=== PATIENT | male | born 1955 | race Caucasian/White ===

== ENCOUNTER 2016-07-02 18:18 | Emergency (ER) | payer MEDICARE ==
[2016-07-02] MEDS ORDERED: Ondansetron INJ* 2 MG/ML VIAL IV ONE (19:47)
[2016-07-02] MEDS ORDERED: Ketorolac INJ* 30 MG/ML 1 ML VIAL IM ONE (19:47)
[2016-07-02] MEDS ORDERED: NS 0.9% 1000 ML* 1,000 ML IV ONE (19:47)
[2016-07-02] MEDS ORDERED: Morphine INJ* 4 MG/ML 1 ML SYRINGE IV ONE (19:47)
[2016-07-02 20:29] LABS: Hematocrit 45 % (42-52); Hemoglobin 15.2 g/dl (14.0-18.0); Mean Corpuscular HGB Conc 34 g/dl (31-36); Mean Corpuscular Hemoglobin 29 pg (27-31); Mean Corpuscular Volume 88 fL (80-94); Mean Platelet Volume 9 um3 (7.4-10.4); Red Blood Count 5.18 10^6/ul (4.0-5.4); Red Cell Distribution Width 14 % (10.5-15); White Blood Count 10.2 10^3/ul (3.5-10.8)
[2016-07-02] MEDS ORDERED: Ketorolac INJ* 30 MG/ML 1 ML VIAL IV PUSH ONE (20:35)
[2016-07-02 20:47] LABS: Albumin 4.2 g/dL (3.2-5.2); BUN/Creatinine Ratio 16.5 (8-20); Calcium 9.3 mg/dL (8.6-10.3); EGFR African American 118.7 (>60); EGFR Non-African American 92.3 (>60); Globulin 2.9 g/dL (2-4); Potassium 3.8 mmol/L (3.5-5.0); Total Bilirubin 0.4 mg/dL (0.2-1.0); Total Protein 7.1 g/dL (6.4-8.9)
[2016-07-02 20:48] LABS: Troponin I 0.01 ng/mL (<0.04)
--- NOTE | 2016-07-02 20:49 | RAD ---
Indication: Left flank pain. CT of the abdomen and pelvis was performed without oral or IV contrast administration. Coronal and sagittal reconstructed images were obtained. Lung bases demonstrate no pleural fluid, nodules or masses. Heart is of normal size without evidence of pericardial effusion. The liver is normal in size. No focal lesions or intrahepatic biliary duct dilatation is noted. The gallbladder demonstrates no gallstones, pericholecystic fluid or wall thickening. Common duct is not dilated. The pancreas demonstrates no mass or pancreatic duct dilatation. The spleen is normal in size. No adrenal masses are noted. The kidneys demonstrate no hydronephrosis in either kidney. Small renal cysts are noted. Atherosclerotic aorta is noted. No evidence of aneurysmal dilatation is noted. No dilated loops of bowel are noted. The colon is filled with stool. Diverticulosis of the sigmoid colon without definite evidence of diverticulitis is noted. No hernias are noted. IMPRESSION: NO EVIDENCE OF OBSTRUCTIVE UROPATHY IS NOTED. NO ABNORMAL MASSES OR FLUID COLLECTIONS ARE NOTED. DIVERTICULOSIS WITHOUT DEFINITE EVIDENCE OF DIVERTICULITIS.
[2016-07-02] MEDS ORDERED: oxyCODONE/Acetamin 5/325 MG* TAB PO ONE (21:16)
[2016-07-02] MEDS ORDERED: Cyclobenzaprine TAB* 10 MG PO ONE (21:17)
[2016-07-02 22:48] LABS: Urine Bilirubin Negative (Negative); Urine Glucose Negative (Negative); Urine Nitrite Negative (Negative)
[2016-07-02 23:38] VITALS: BP 134/80
== END 2016-07-02 23:36 | disposition home or self-care (01) ==
LOC: ED 18:18
DX: R10.84 Generalized abdominal pain (principal)
CPT/HCPCS: 36415; 74176; 80053; 81003; 83690; 84484; 85025; 93005; 96374; 96375; 99282; A9270-GY; J1885; J2270; J2405

== ENCOUNTER 2017-01-04 17:11 | Emergency (ER) | payer MEDICARE ==
[2017-01-04] MEDS ORDERED: Ondansetron INJ* 2 MG/ML VIAL IV ONE (18:04)
[2017-01-04] MEDS ORDERED: Morphine INJ* 4 MG/ML 1 ML SYRINGE IV ONE (18:04)
[2017-01-04] MEDS ORDERED: NS 0.9% 1000 ML* 1,000 ML IV ONE ×2 (18:04→19:16)
[2017-01-04 18:30] LABS: Hematocrit 45 % (42-52); Hemoglobin 15.4 g/dl (14.0-18.0); Mean Corpuscular HGB Conc 35 g/dl (31-36); Mean Corpuscular Hemoglobin 31 pg (27-31); Mean Corpuscular Volume 88 fL (80-94); Mean Platelet Volume 9 um3 (7.4-10.4); Red Blood Count 5.06 10^6/ul (4.0-5.4); Red Cell Distribution Width 14 % (10.5-15); White Blood Count 10.7 10^3/ul (3.5-10.8)
[2017-01-04 18:34] LABS: Urine Bacteria Absent (Absent); Urine Bilirubin Negative (Negative); Urine Glucose 1+(50 mg/dL) (Negative); Urine Nitrite Negative (Negative); Urine Sperm Present (Absent)
[2017-01-04 18:56] LABS: Albumin 4.1 g/dL (3.2-5.2); BUN/Creatinine Ratio 17.4 (8-20); C Reactive Protein 1.64 mg/L (< 5.00); Calcium 9.3 mg/dL (8.6-10.3); EGFR African American 116.7 (>60); EGFR Non-African American 90.7 (>60); Globulin 2.8 g/dL (2-4); Potassium 3.7 mmol/L (3.5-5.0); Total Bilirubin 0.3 mg/dL (0.2-1.0); Total Protein 6.9 g/dL (6.4-8.9)
[2017-01-04] MEDS ORDERED: fentaNYL* 50 MCG/ML 2 ML VIAL (100 MCG VIAL) IV SLOW PU ONE (19:24)
--- NOTE | 2017-01-04 20:18 | RAD ---
CLINICAL HISTORY: Left lower quadrant pain and flank pain COMPARISON: July 02, 2016 TECHNIQUE: Multiple contiguous axial CT scans were obtained of the abdomen and pelvis, without intravenous contrast enhancement. Coronal and sagittal multiplanar reformations are submitted for review. Oral contrast was administered. FINDINGS: The study is limited by the lack of intravenous contrast. This limits evaluation of the solid organs and vasculature. LUNG BASES: The lung bases are clear. LIVER: The liver is normal in shape, size, contour, and attenuation. BILE DUCTS: There is no intrahepatic or extrahepatic biliary dilatation. GALLBLADDER: The gallbladder is normal, without pericholecystic inflammatory change. PANCREAS: The pancreas is normal, without mass or ductal dilatation. SPLEEN: Normal in size and appearance. UPPER GI TRACT: Evaluation of the gastrointestinal tract is limited by incomplete gastric distention. The upper GI tract is unremarkable. SMALL BOWEL AND MESENTERY: The small bowel is normal in contour, course, and caliber. There is no obstruction or dilatation. COLON: There are scattered diverticula of the distal colon. There is no appreciable pericolonic inflammatory change. ADRENALS: Normal bilaterally. KIDNEYS: The kidneys are normal in shape, size, contour, and axis. There is no hydronephrosis or nephrolithiasis. BLADDER: The bladder is smooth in contour. PELVIC ORGANS: The prostate gland is normal. The seminal vesicles are symmetric. Fiducial markers are noted AORTA: There is calcific atherosclerotic disease of the abdominal aorta and its branches, without aneurysmal dilatation IVC: Unremarkable LYMPH NODES: There is no lymphadenopathy by size criteria. ABDOMINAL WALL: There is no evidence for abdominal wall hernia. BONES AND SOFT TISSUES: Degenerative changes are noted OTHER: None IMPRESSION: NO HYDRONEPHROSIS OR NEPHROLITHIASIS. DIVERTICULOSIS WITHOUT PERICOLONIC INFLAMMATORY CHANGE.
[2017-01-04] MEDS ORDERED: Ciprofloxacin TAB* 500 MG PO ONE (20:38)
[2017-01-04] MEDS ORDERED: Ciprofloxacin 400MG IVPREMIX(* 400 MG/200 ML BAG IVPB ONE (20:38)
[2017-01-04] MEDS ORDERED: metroNIDAZOLE TAB* 250 MG PO ONE (20:39)
[2017-01-04] MEDS ORDERED: metroNIDAZOLE IV 500 MG/100ML* 500 MG/100 ML BAG IVPB ONE (20:39)
--- NOTE | 2017-01-04 20:42 | ED ---
Talha Milian Alfonso, scribed for Aileen Hearn MD on 01/04/17 at 1801 . Abdominal Pain/Male - HPI Summary HPI Summary: This patient is a 61 year old M presenting to [facility] with a chief complaint of left flank pain since 2 weeks ago. The pain radiates to his groin. The patient rates the pain 10/10 in severity. Symptoms aggravated by movement. Symptoms alleviated by nothing. Patient denies N/V/D, dysuria, and bowel symptoms (uses stool softeners because he takes oxycodone). Tobacco abuse disorder. He denies PMHx of CHF. PMHx of prostate cancer, borderline DM, HTN, HLD, and CAD (2 SC and 3 stents). - History of Current Complaint Chief Complaint: EDAbdPain Stated Complaint: ABD AND LT LEG PAIN Time Seen by Provider: 01/04/17 17:43 Hx Obtained From: Patient Onset/Duration: Sudden Onset, Lasting Weeks - 2, Still Present Timing: Constant Severity Initially: Severe Severity Currently: Severe Pain Intensity: 10 Pain Scale Used: 0-10 Numeric Location: Flank - L Radiates: Yes Radiates to: Other - Groin Aggravating Factor(s): Movement Alleviating Factor(s): Nothing Associated Signs And Symptoms: Positive: Other - Patient denies N/V/D, dysuria, and bowel symptoms (uses stool softeners because he takes oxycodone). - Allergies/Home Medications Allergies/Adverse Reactions: Allergies Allergy/AdvReac Type Severity Reaction Status Date / Time Isosorbide Nitrate AdvReac Intermediate Headache Verified 01/04/17 17:24 [From Imdur] DYE FROM STRESS TEST Allergy Nausea And Uncoded 07/02/16 18:29 Vomiting PMH/Surg Hx/FS Hx/Imm Hx Endocrine/Hematology History: Reports: Hx Diabetes Cardiovascular History: Reports: Hx Hypertension Denies: Hx Congestive Heart Failure, Hx Pacemaker/ICD Respiratory History: Reports: Hx Sleep Apnea - RECENTLY DIAGNOSED-NO CPAP GI History: Reports: Hx Gastroesophageal Reflux Disease - MILD-NO MEDS Denies: Other GI Disorders History: Reports: Hx Kidney Stones - IN THE PAST Denies: Hx Dialysis, Hx Renal Disease Musculoskeletal History: Reports: Other Musculoskeletal History - S/P NECK SURGERY-SPINAL STENOSIS Sensory History: Reports: Hx Contacts or Glasses - FOR DRIVING Denies: Hx Hearing Aid Opthamlomology History: Reports: Hx Contacts or Glasses - FOR DRIVING Psychiatric History: Reports: Hx Anxiety - ON MED, Hx Depression - ON MED Denies: Hx Panic Disorder - Cancer History Cancer Type, Location and Year: PROSTATE - Surgical History Surgery Procedure, Year, and Place: Rt SHOULDER- 13 YRS AGO; 3- CARDIAC STENTS ( DONE IN [facility] 3.5/12 Xs 3) {ALL ARE SAFE FOR A 3T}-2004;CERVICAL SPINE, RT KNEE ARTHROSCOPIC,LT CARPAL TUNNEL SURGERY Hx Anesthesia Reactions: No Infectious Disease History: No Infectious Disease History: Denies: Traveled Outside the [place] in Last 30 Days - Family History Known Family History: Positive: Cardiac Disease, Hypertension, Diabetes - Social History Lives: With Family Alcohol Use: Rare Alcohol Amount: 1/month Substance Use Type: Reports: None Substance Use Comment - Amount & Last Used: 3 cups coffee per morning Hx Tobacco Use: Yes Smoking Status (MU): Current Every Day Smoker Type: Cigarettes Amount Used/How Often: 10-15 CIGS Length of Time of Smoking/Using Tobacco: 48 YEARS Have You Smoked in the Last Year: Yes Review of Systems Negative: Fever Positive: Abdominal Pain - left flank, Other - Negative bowel symptoms (uses stool softeners because he takes oxycodone).. Negative: Vomiting, Diarrhea, Nausea Negative: dysuria All Other Systems Reviewed And Are Negative: Yes Physical Exam Triage Information Reviewed: Yes Vital Signs On Initial Exam: Initial Vitals Temp Pulse Resp BP Pulse Ox 98.2 F 117 20 134/103 96 01/04/17 17:20 01/04/17 17:20 01/04/17 17:20 01/04/17 17:20 01/04/17 17:20 Vital Signs Reviewed: Yes Appearance: Positive: Well-Appearing, No Pain Distress, Obese Skin: Positive: Skin Color Reflects Adequate Perfusion, Dry Eyes: Positive: EOMI, JUVENAL ENT: Positive: Pharynx normal, TMs normal Neck: Positive: Supple, Nontender Respiratory/Lung Sounds: Positive: Clear to Auscultation, Breath Sounds Present. Negative: Rales, Rhonchi, Wheezes Cardiovascular: Positive: RRR, Other - No gallop.. Negative: Murmur, Rub Abdomen Description: Positive: Soft, Other: - No rebound. LLQ and left flank pain.. Negative: Distended, Guarding Bowel Sounds: Positive: Present Musculoskeletal: Positive: Strength/ROM Intact. Negative: Edema Left, Edema Right Neurological: Positive: Sensory/Motor Intact, Alert, Oriented to Person Place, Time, CN Intact II-III Psychiatric: Positive: Affect/Mood Appropriate Diagnostics - Vital Signs Vital Signs Temp Pulse Resp BP Pulse Ox 01/04/17 17:20 98.2 F 117 20 134/103 96 - Laboratory Lab Results: Lab Results 01/04/17 01/04/17 01/04/17 Range/Units 18:15 18:15 18:15 WBC 10.7 (3.5-10.8) 10^3/ul RBC 5.06 (4.0-5.4) 10^6/ul Hgb 15.4 (14.0-18.0) g/dl Hct 45 (42-52) % MCV 88 (80-94) fL MCH 31 (27-31) pg MCHC 35 (31-36) g/dl RDW 14 (10.5-15) % Plt Count 187 (150-450) 10^3/ul MPV 9 (7.4-10.4) um3 Neut % (Auto) 73.8 (38-83) % Lymph % (Auto) 16.6 L (25-47) % [place] % (Auto) 6.7 (1-9) % Eos % (Auto) 2.1 (0-6) % Baso % (Auto) 0.8 (0-2) % Absolute Neuts (auto) 7.9 H (1.5-7.7) 10^3/ul Absolute Lymphs (auto) 1.8 (1.0-4.8) 10^3/ul Absolute Monos (auto) 0.7 (0-0.8) 10^3/ul Absolute Eos (auto) 0.2 (0-0.6) 10^3/ul Absolute Basos (auto) 0.1 (0-0.2) 10^3/ul Absolute Nucleated RBC 0.01 10^3/ul Nucleated RBC % 0 Sodium 136 (133-145) mmol/L Potassium 3.7 (3.5-5.0) mmol/L Chloride 105 (101-111) mmol/L Carbon Dioxide 26 (22-32) mmol/L Anion Gap 5 (2-11) mmol/L BUN 15 (6-24) mg/dL Creatinine 0.86 (0.67-1.17) mg/dL Est GFR ( Amer) 116.7 (>60) Est GFR (Non-Af Amer) 90.7 (>60) BUN/Creatinine Ratio 17.4 (8-20) Glucose 210 H (70-100) mg/dL Lactic Acid (0.5-2.0) mmol/L Calcium 9.3 (8.6-10.3) mg/dL Total Bilirubin 0.30 (0.2-1.0) mg/dL AST 15 (13-39) U/L ALT 20 (7-52) U/L Alkaline Phosphatase 57 (34-104) U/L Troponin I 0.00 (<0.04) ng/mL C-Reactive Protein 1.64 (< 5.00) mg/L Total Protein 6.9 (6.4-8.9) g/dL Albumin 4.1 (3.2-5.2) g/dL Globulin 2.8 (2-4) g/dL Albumin/Globulin Ratio 1.5 (1-3) Lipase 35 (11.0-82.0) U/L Urine Color Yellow Urine Appearance Clear Urine pH 5.0 (5-9) Ur Specific [place] 1.027 (1.010-1.030) Urine Protein Negative (Negative) Urine Ketones Trace H (Negative) Urine Blood Negative (Negative) Urine Nitrate Negative (Negative) Urine Bilirubin Negative (Negative) Urine Urobilinogen Negative (Negative) Ur Leukocyte Esterase Trace H (Negative) Urine WBC (Auto) Trace(0-5/hpf) (Absent) Urine RBC (Auto) Absent (Absent) Calcium Oxalate Crystal Present H (Absent) Urine Bacteria Absent (Absent) Urine Sperm Present H (Absent) Urine Glucose 1+(50 mg/dl) H (Negative) 01/04/17 Range/Units 18:15 WBC (3.5-10.8) 10^3/ul RBC (4.0-5.4) 10^6/ul Hgb (14.0-18.0) g/dl Hct (42-52) % MCV (80-94) fL MCH (27-31) pg MCHC (31-36) g/dl RDW (10.5-15) % Plt Count (150-450) 10^3/ul MPV (7.4-10.4) um3 Neut % (Auto) (38-83) % Lymph % (Auto) (25-47) % [place] % (Auto) (1-9) % Eos % (Auto) (0-6) % Baso % (Auto) (0-2) % Absolute Neuts (auto) (1.5-7.7) 10^3/ul Absolute Lymphs (auto) (1.0-4.8) 10^3/ul Absolute Monos (auto) (0-0.8) 10^3/ul Absolute Eos (auto) (0-0.6) 10^3/ul Absolute Basos (auto) (0-0.2) 10^3/ul Absolute Nucleated RBC 10^3/ul Nucleated RBC % Sodium (133-145) mmol/L Potassium (3.5-5.0) mmol/L Chloride (101-111) mmol/L Carbon Dioxide (22-32) mmol/L Anion Gap (2-11) mmol/L BUN (6-24) mg/dL Creatinine (0.67-1.17) mg/dL Est GFR ( Amer) (>60) Est GFR (Non-Af Amer) (>60) BUN/Creatinine Ratio (8-20) Glucose (70-100) mg/dL Lactic Acid 2.2 H* (0.5-2.0) mmol/L Calcium (8.6-10.3) mg/dL Total Bilirubin (0.2-1.0) mg/dL AST (13-39) U/L ALT (7-52) U/L Alkaline Phosphatase (34-104) U/L Troponin I (<0.04) ng/mL C-Reactive Protein (< 5.00) mg/L Total Protein (6.4-8.9) g/dL Albumin (3.2-5.2) g/dL Globulin (2-4) g/dL Albumin/Globulin Ratio (1-3) Lipase (11.0-82.0) U/L Urine Color Urine Appearance Urine pH (5-9) Ur Specific [place] (1.010-1.030) Urine Protein (Negative) Urine Ketones (Negative) Urine Blood (Negative) Urine Nitrate (Negative) Urine Bilirubin (Negative) Urine Urobilinogen (Negative) Ur Leukocyte Esterase (Negative) Urine WBC (Auto) (Absent) Urine RBC (Auto) (Absent) Calcium Oxalate Crystal (Absent) Urine Bacteria (Absent) Urine Sperm (Absent) Urine Glucose (Negative) Result Diagrams: 01/04/17 18:15 01/04/17 18:15 Lab Statement: Any lab studies that have been ordered have been reviewed, and results considered in the medical decision making process. - CT A/P CT Interpretation Completed By: Radiologist - NO HYDRONEPHROSIS OR NEPHROLITHIASIS. DIVERTICULOSIS WITHOUT PERICOLONIC INFLAMMATORY CHANGE. ED physician has reviewed this radiology report and agrees. - EKG 1840 Cardiac Rate: NL - BPM 91 EKG Rhythm: Sinus Rhythm EKG Interpretation: NSR. Anterior Q waves. EKG Comparison: No Significant Change - 07/02/16 Abdominal Pain Fem Course/Dx - Course Course Of Treatment: 61 yo male with left flank and left lower quadrant pain with ct findings sig for diverticulosis- likely subacute diverticulitis given amt of pain elevated hr will give first dose iv and then po doses of abx to go. 2nd lactic acid if normal will allow pt to go home - Diagnoses Provider Diagnoses: Diverticulitis Discharge - Discharge Plan Condition: Stable Disposition: HOME Prescriptions: Ciprofloxacin TAB* [Cipro 500 MG TAB*] 500 mg PO BID #20 tab Metronidazole [Flagyl 500 MG TAB] 500 mg PO QID #40 tab Patient Education Materials: Diverticulitis (ED) Referrals: Adam Chavez MD [Primary Care Provider] - 3 Days The documentation as recorded by the Talha feliz Alfonso accurately reflects the service I personally performed and the decisions made by me, Aileen Hearn MD.
[2017-01-04 22:56] VITALS: BP 128/72
== END 2017-01-04 22:58 | disposition home or self-care (01) ==
LOC: ED 17:11
DX: K57.92 Diverticulitis of intestine, part unspecified, without perforation or abscess without bleeding (principal); R10.84 Generalized abdominal pain; F17.210 Nicotine dependence, cigarettes, uncomplicated
CPT/HCPCS: 36415; 74176; 80053; 81003; 81015; 83605; 83690; 84484; 85025; 86140; 87086; 93005; 96365; 96375; 99283; A9270-GY; J0744; J2270; J2405; J3010

== ENCOUNTER 2017-01-14 18:05 | Emergency (ER) | payer MEDICARE ==
[2017-01-14] MEDS ORDERED: LORazepam INJ* 2 MG/ML 1 ML VIAL IV ONE (18:58)
[2017-01-14 20:06] LABS: Hematocrit 46 % (42-52); Hemoglobin 15.9 g/dl (14.0-18.0); Mean Corpuscular HGB Conc 34 g/dl (31-36); Mean Corpuscular Hemoglobin 30 pg (27-31); Mean Corpuscular Volume 89 fL (80-94); Mean Platelet Volume 9 um3 (7.4-10.4); Red Blood Count 5.23 10^6/ul (4.0-5.4); Red Cell Distribution Width 14 % (10.5-15)
[2017-01-14 20:09] LABS: Urine Bacteria Absent (Absent); Urine Bilirubin Negative (Negative); Urine Glucose Negative (Negative); Urine Nitrite Negative (Negative)
[2017-01-14 20:16] LABS: Albumin 4.6 g/dL (3.2-5.2); BUN/Creatinine Ratio 19.1 (8-20); C Reactive Protein 3.7 mg/L (< 5.00); Calcium 9.7 mg/dL (8.6-10.3); EGFR African American 105.3 (>60); EGFR Non-African American 81.9 (>60); Globulin 2.7 g/dL (2-4); Potassium 4.1 mmol/L (3.5-5.0); Total Bilirubin 0.3 mg/dL (0.2-1.0); Total Protein 7.3 g/dL (6.4-8.9)
[2017-01-14] MEDS ORDERED: Iodixanol* (CONTRAST) 320 MG/ML 100 ML SDV IV ONE (20:19)
--- NOTE | 2017-01-14 21:33 | RAD ---
INDICATION: LEFT lower quadrant abdominal pain. LEFT flank and testicular pain increased with raising the LEFT leg. History of diverticulosis. COMPARISON: January 04, 2017 TECHNIQUE: Multidetector CT images were obtained from the lung bases to the ischial tuberosities with 141 mL Visipaque IV and oral contrast. Multiplanar reformation. REPORT: Late phase of contrast enhancement noted. Clear visualized lung bases. Coronary artery calcifications and stents. Negative for CT abnormality of the liver, gallbladder, pancreas, spleen. Negative for CT abnormality of the upper GI, small bowel, retrocecal appendix. Severe colonic diverticulosis most confluent at the sigmoid colon without findings of diverticulitis. Negative for ascites, free air, hernias. Normal adrenal glands. Symmetric renal excretion of contrast. Small cortical cyst upper pole LEFT kidney. No suspicious focal renal lesions or hydronephrosis. Unremarkable nondilated ureters and largely decompressed urinary bladder. Symmetric seminal vesicles. Metallic implants at the prostate. Negative for lymphadenopathy. Mild calcific plaque of normal diameter abdominal aorta and iliac arteries. Physiologic distention of the IVC. Negative for suspicious focal osseous lesions. 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 Degenerative spondylosis and posterior element osteoarthritis results in multilevel acquired central canal stenosis most prominent at L3-L4 and L4-L5 moderately severe. Multilevel foraminal stenosis due to similar factors most prominent at L4-L5 and L5-S1. IMPRESSION: 1. Negative for obstructive uropathy. 2. Normal appendix documented. Colonic diverticulosis without findings of diverticulitis. 3. Negative for lymphadenopathy. 4. Negative for suspicious focal osseous lesions.
[2017-01-14] MEDS ORDERED: Ondansetron INJ* 2 MG/ML VIAL IV ONE (21:53)
[2017-01-14] MEDS ORDERED: HYDROmorphone* 1 MG/ML 1 ML SYR IV ONE (21:53)
--- NOTE | 2017-01-14 21:59 | ED ---
Ludmila Milian Emily, scribed for Sky Barrett MD on 01/14/17 at 1842 . Abdominal Pain/Male - HPI Summary HPI Summary: This patient is a 61 year old M presenting to [facility] with a chief complaint of left flank pain since 4 weeks ago and worse since 2 days ago. The pain radiates to left testicle. The patient rates the pain 10/10 in severity. Symptoms aggravated by movement (raising left leg). Symptoms alleviated by nothing. Patient reports unproductive cough. He presented to [facility] 10 days ago with a diagnosis of diverticulitis. Takes oxycodone (spinal stenosis in c-spine). Tobacco abuse disorder. He denies PMHx of CHF. PMHx of prostate cancer, borderline DM, HTN, HLD, and CAD (2 MT and 3 stents). - History of Current Complaint Chief Complaint: EDFlankPain Stated Complaint: ABD PAIN Time Seen by Provider: 01/14/17 18:18 Hx Obtained From: Patient Onset/Duration: Sudden Onset, Lasting Weeks, Worse Since - 2 days Timing: Constant Severity Initially: Severe Severity Currently: Severe Pain Intensity: 10 Pain Scale Used: 0-10 Numeric Location: Flank - Left Radiates: Yes Radiates to: Other - Left testicle Aggravating Factor(s): Movement - Raising left leg Alleviating Factor(s): Nothing Associated Signs And Symptoms: Positive: Cough - Unproductive - Allergies/Home Medications Allergies/Adverse Reactions: Allergies Allergy/AdvReac Type Severity Reaction Status Date / Time Isosorbide Nitrate AdvReac Intermediate Headache Verified 01/04/17 17:24 [From Imdur] DYE FROM STRESS TEST Allergy Nausea And Uncoded 07/02/16 18:29 Vomiting PMH/Surg Hx/FS Hx/Imm Hx Endocrine/Hematology History: Reports: Hx Diabetes Cardiovascular History: Reports: Hx Hypertension Denies: Hx Congestive Heart Failure, Hx Pacemaker/ICD Respiratory History: Reports: Hx Sleep Apnea - RECENTLY DIAGNOSED-NO CPAP GI History: Reports: Hx Gastroesophageal Reflux Disease - MILD-NO MEDS Denies: Other GI Disorders History: Reports: Hx Kidney Stones - IN THE PAST Denies: Hx Dialysis, Hx Renal Disease Musculoskeletal History: Reports: Other Musculoskeletal History - S/P NECK SURGERY-SPINAL STENOSIS Sensory History: Reports: Hx Contacts or Glasses - FOR DRIVING Denies: Hx Hearing Aid Opthamlomology History: Reports: Hx Contacts or Glasses - FOR DRIVING Psychiatric History: Reports: Hx Anxiety - ON MED, Hx Depression - ON MED Denies: Hx Panic Disorder - Cancer History Cancer Type, Location and Year: PROSTATE - Surgical History Surgery Procedure, Year, and Place: Rt SHOULDER- 13 YRS AGO; 3- CARDIAC STENTS ( DONE IN [facility] 3.5/12 Xs 3) {ALL ARE SAFE FOR A 3T}-2004;CERVICAL SPINE, RT KNEE ARTHROSCOPIC,LT CARPAL TUNNEL SURGERY Hx Anesthesia Reactions: No Infectious Disease History: Denies: Traveled Outside the [place] in Last 30 Days - Family History Known Family History: Positive: Cardiac Disease, Hypertension, Diabetes - Social History Alcohol Use: Rare Alcohol Amount: 1/month Substance Use Type: Reports: None Substance Use Comment - Amount & Last Used: 3 cups coffee per morning Hx Tobacco Use: Yes Smoking Status (MU): Current Every Day Smoker Type: Cigarettes Amount Used/How Often: 10-15 CIGS Length of Time of Smoking/Using Tobacco: 48 YEARS Have You Smoked in the Last Year: Yes Review of Systems Positive: Cough - Unproductive Positive: flank pain - Left flank pain which radiates to left testicle All Other Systems Reviewed And Are Negative: Yes Physical Exam Vital Signs On Initial Exam: Initial Vitals Temp Pulse Resp BP Pulse Ox 98.1 F 116 17 129/76 98 01/14/17 18:11 01/14/17 18:11 01/14/17 18:11 01/14/17 18:11 01/14/17 18:11 Appearance: Positive: Well-Appearing, No Pain Distress Skin: Positive: Warm, Skin Color Reflects Adequate Perfusion, Dry Head/Face: Positive: Normal Head/Face Inspection Eyes: Positive: Normal ENT: Positive: Normal ENT inspection Neck: Positive: Supple, Nontender Respiratory/Lung Sounds: Positive: Clear to Auscultation, Breath Sounds Present Cardiovascular: Positive: RRR Abdomen Description: Positive: Soft, Other: - Mildly tender at LLQ. Bowel Sounds: Positive: Present Musculoskeletal: Positive: Other - Positive straight leg raise. Left paralumbar and sciatic area tenderness. Neurological: Positive: Normal, Sensory/Motor Intact, Alert, Oriented to Person Place, Time, CN Intact II-III Psychiatric: Positive: Affect/Mood Appropriate Diagnostics - Vital Signs Vital Signs Temp Pulse Resp BP Pulse Ox 01/14/17 18:11 98.1 F 116 17 129/76 98 - Laboratory Lab Results: Lab Results 01/14/17 01/14/17 01/14/17 Range/Units 19:45 19:45 19:45 WBC 10.0 (3.5-10.8) 10^3/ul RBC 5.23 (4.0-5.4) 10^6/ul Hgb 15.9 (14.0-18.0) g/dl Hct 46 (42-52) % MCV 89 (80-94) fL MCH 30 (27-31) pg MCHC 34 (31-36) g/dl RDW 14 (10.5-15) % Plt Count 214 (150-450) 10^3/ul MPV 9 (7.4-10.4) um3 Neut % (Auto) 67.0 (38-83) % Lymph % (Auto) 19.4 L (25-47) % [place] % (Auto) 10.7 H (1-9) % Eos % (Auto) 2.2 (0-6) % Baso % (Auto) 0.7 (0-2) % Absolute Neuts (auto) 6.7 (1.5-7.7) 10^3/ul Absolute Lymphs (auto) 1.9 (1.0-4.8) 10^3/ul Absolute Monos (auto) 1.1 H (0-0.8) 10^3/ul Absolute Eos (auto) 0.2 (0-0.6) 10^3/ul Absolute Basos (auto) 0.1 (0-0.2) 10^3/ul Absolute Nucleated RBC 0.01 10^3/ul Nucleated RBC % 0 Sodium 136 (133-145) mmol/L Potassium 4.1 (3.5-5.0) mmol/L Chloride 100 L (101-111) mmol/L Carbon Dioxide 27 (22-32) mmol/L Anion Gap 9 (2-11) mmol/L BUN 18 (6-24) mg/dL Creatinine 0.94 (0.67-1.17) mg/dL Est GFR ( Amer) 105.3 (>60) Est GFR (Non-Af Amer) 81.9 (>60) BUN/Creatinine Ratio 19.1 (8-20) Glucose 137 H (70-100) mg/dL Lactic Acid 2.3 H* (0.5-2.0) mmol/L Calcium 9.7 (8.6-10.3) mg/dL Total Bilirubin 0.30 (0.2-1.0) mg/dL AST 35 (13-39) U/L ALT 62 H (7-52) U/L Alkaline Phosphatase 51 (34-104) U/L C-Reactive Protein 3.70 (< 5.00) mg/L Total Protein 7.3 (6.4-8.9) g/dL Albumin 4.6 (3.2-5.2) g/dL Globulin 2.7 (2-4) g/dL Albumin/Globulin Ratio 1.7 (1-3) Lipase 37 (11.0-82.0) U/L Urine Color Urine Appearance Urine pH (5-9) Ur Specific [place] (1.010-1.030) Urine Protein (Negative) Urine Ketones (Negative) Urine Blood (Negative) Urine Nitrate (Negative) Urine Bilirubin (Negative) Urine Urobilinogen (Negative) Ur Leukocyte Esterase (Negative) Urine WBC (Auto) (Absent) Urine RBC (Auto) (Absent) Urine Bacteria (Absent) Urine Glucose (Negative) 01/14/17 Range/Units 19:58 WBC (3.5-10.8) 10^3/ul RBC (4.0-5.4) 10^6/ul Hgb (14.0-18.0) g/dl Hct (42-52) % MCV (80-94) fL MCH (27-31) pg MCHC (31-36) g/dl RDW (10.5-15) % Plt Count (150-450) 10^3/ul MPV (7.4-10.4) um3 Neut % (Auto) (38-83) % Lymph % (Auto) (25-47) % [place] % (Auto) (1-9) % Eos % (Auto) (0-6) % Baso % (Auto) (0-2) % Absolute Neuts (auto) (1.5-7.7) 10^3/ul Absolute Lymphs (auto) (1.0-4.8) 10^3/ul Absolute Monos (auto) (0-0.8) 10^3/ul Absolute Eos (auto) (0-0.6) 10^3/ul Absolute Basos (auto) (0-0.2) 10^3/ul Absolute Nucleated RBC 10^3/ul Nucleated RBC % Sodium (133-145) mmol/L Potassium (3.5-5.0) mmol/L Chloride (101-111) mmol/L Carbon Dioxide (22-32) mmol/L Anion Gap (2-11) mmol/L BUN (6-24) mg/dL Creatinine (0.67-1.17) mg/dL Est GFR ( Amer) (>60) Est GFR (Non-Af Amer) (>60) BUN/Creatinine Ratio (8-20) Glucose (70-100) mg/dL Lactic Acid (0.5-2.0) mmol/L Calcium (8.6-10.3) mg/dL Total Bilirubin (0.2-1.0) mg/dL AST (13-39) U/L ALT (7-52) U/L Alkaline Phosphatase (34-104) U/L C-Reactive Protein (< 5.00) mg/L Total Protein (6.4-8.9) g/dL Albumin (3.2-5.2) g/dL Globulin (2-4) g/dL Albumin/Globulin Ratio (1-3) Lipase (11.0-82.0) U/L Urine Color Yellow Urine Appearance Clear Urine pH 5.0 (5-9) Ur Specific [place] 1.026 (1.010-1.030) Urine Protein Negative (Negative) Urine Ketones Negative (Negative) Urine Blood Negative (Negative) Urine Nitrate Negative (Negative) Urine Bilirubin Negative (Negative) Urine Urobilinogen Negative (Negative) Ur Leukocyte Esterase Trace H (Negative) Urine WBC (Auto) Absent (Absent) Urine RBC (Auto) 1+(3-5/hpf) H (Absent) Urine Bacteria Absent (Absent) Urine Glucose Negative (Negative) Result Diagrams: 01/14/17 19:45 01/14/17 19:45 Lab Statement: Any lab studies that have been ordered have been reviewed, and results considered in the medical decision making process. - CT A/P CT Interpretation Completed By: Radiologist - 1. Negative for obstructive uropathy. 2. Normal appendix documented. Colonic diverticulosis without findings of diverticulitis. 3. Negative for lymphadenopathy. 4. Negative for suspicious focal osseous lesions. ED physician has reviewed this radiology report and agrees. - EKG 2145 Cardiac Rate: NL - BPM 76 EKG Rhythm: Sinus Rhythm EKG Interpretation: NAC Abdominal Pain Fem Course/Dx - Course Course Of Treatment: Mr. Rivera clearly has a musculoskeletal component to his pain His W/U here was negative and Irecommended that we treat this component and reevaluate the pain. He has pain meds at home and I will add a muscle relaxer. - Diagnoses Provider Diagnoses: Low back strain Discharge - Discharge Plan Condition: Stable Disposition: HOME Prescriptions: LORazepam TAB(*) [Ativan TAB(*)] 1 mg PO Q6H PRN #20 tab MDD 4 PRN Reason: Pain Patient Education Materials: Low Back Strain (ED) Referrals: Adam Chavez MD [Primary Care Provider] - 3 Days Additional Instructions: TAKE IBUPROFEN DAILY. The documentation as recorded by the Ludmila feliz Emily accurately reflects the service I personally performed and the decisions made by me, Sky Barrett MD.
[2017-01-14 22:58] VITALS: BP 145/84
== END 2017-01-14 22:58 | disposition home or self-care (01) ==
LOC: ED 18:05
DX: S39.012A Strain of muscle, fascia and tendon of lower back, initial encounter (principal); I50.9 Heart failure, unspecified; I10 Essential (primary) hypertension; E11.9 Type 2 diabetes mellitus without complications; F41.8 Other specified anxiety disorders; F17.210 Nicotine dependence, cigarettes, uncomplicated; Z85.46 Personal history of malignant neoplasm of prostate; I25.10 Atherosclerotic heart disease of native coronary artery without angina pectoris; I25.2 Old myocardial infarction; K57.92 Diverticulitis of intestine, part unspecified, without perforation or abscess without bleeding; X58.XXXA Exposure to other specified factors, initial encounter; Y92.9 Unspecified place or not applicable
CPT/HCPCS: 36415; 74177; 80053; 81003; 81015; 83605; 83690; 85025; 86140; 87086; 96374; 96375; 99283; J1170; J2060; J2405; Q9967

== ENCOUNTER 2018-11-10 11:53 | Day surgery (SDC) | payer MEDICARE ==
[~2018-11-10 11:53] MED LIST: Acetaminophen TAB* 325 MG PO PRN
[2018-11-10] MEDS ORDERED: fentaNYL* 50 MCG/ML 2 ML VIAL (100 MCG VIAL) ONE (12:56)
[2018-11-10] MEDS ORDERED: Midazolam* 1 MG/ML 5 ML VIAL (5 MG) ONE (12:56)
[2018-11-10] MEDS ORDERED: Tropicamide 1% OPTH.SOL* BTL ONE (13:29)
[2018-11-10] MEDS ORDERED: Povidone Iodine 5% OPTH* 30 ML BTL ONE (13:29)
[2018-11-10] MEDS ORDERED: acetaZOLAMIDE TAB* 250 MG ONE (13:29)
[2018-11-10] MEDS ORDERED: Phenylephrine OPHTH SOL 2.5%* 2 ML ONE (13:29)
[2018-11-10] MEDS ORDERED: Ketorolac 0.5% OPHTH (NF) 0.5 % 5 ML BTL ONE (13:29)
[2018-11-10] MEDS ORDERED: Neomycin/Polymy/Dex OPHTH.OIN* 3.5 GM ONE (13:29)
[2018-11-10] MEDS ORDERED: Lidocaine 1% MPF ** 5 ML VIAL ONE (13:29)
[2018-11-10] MEDS ORDERED: Cyclopentolate 1% OPTH.SOL* 2 ML BTL ONE (13:29)
[2018-11-10] MEDS ORDERED: Tetracaine 0.5% OPTH.SOL 4 ML* 1 DROP BTL ONE (13:29)
[2018-11-10 15:07] VITALS: BP 120/77
--- NOTE | 2018-11-10 19:55 | OP ---
DATE OF OPERATION: 11/10/18 - [facility] DATE OF : 57 SURGEON: Den Rivera MD. ANESTHESIA: Monitored anesthesia care. PREOPERATIVE DIAGNOSIS: Cataract, right eye. POSTOPERATIVE DIAGNOSIS: Cataract, right eye. OPERATIVE PROCEDURE: Extracapsular cataract extraction of the right eye with intraocular lens implant. IMPLANT: SN60WF 18.0 diopter lens to the right eye and capsular tension ring size 11 to the right eye. COMPLICATIONS: None. DESCRIPTION OF PROCEDURE: The patient developed cataract secondary to a history of retinal detachment and pars plana vitrectomy in the right eye; therefore, he planned for a capsular tension ring which we placed during his cataract surgery. The patient was given phenylephrine 2.5% and cyclopentolate 1 % eye drops to the operative eye in the preoperative area. The patient was taken to the operating room where a time-out was taken to identify the correct patient, site, and side of surgery. The patient's right eye was prepped and draped in the usual sterile fashion with 5% Betadine. A second time-out was taken to verify the correct patient, side, and site of surgery, and correct lens selection. A loop speculum was placed to the right eye. A 1-mm paracentesis blade was used to make a clear corneal incision. Preservative- free 1% lidocaine was injected into the anterior chamber. DisCoVisc was then injected into the anterior chamber. A 2.75-mm keratome blade was used to make a triplanar incision. A cystotome initiated a capsulorrhexis, which was completed with Utrata forceps in a continuous and curvilinear manner. Hydrodissection of the lens was performed with BSS on a cannula. The lens could be spun in the capsular bag. The phacoemulsification handpiece was used with a [id number] technique to remove the nucleus. The I/A handpiece then removed the residual cortical lens material. DisCoVisc was then injected to inflate the capsular bag. The planned Yann Reform capsular tension ring, size 11, was then placed in the capsular bag to provide capsular support given the patient's history of pars plana vitrectomy. The planned SN60WF 18.0 diopter lens was then injected into the capsular bag. The residual DisCoVisc was removed from the eye with the I/A handpiece. The corneal incisions were hydrated and no leaks occurred at physiologic pressure around 20 mmHg per palpation. The lid speculum was removed and drapes removed. Maxitrol ointment was placed at the surface of the operative eye. An adhesive patch and shield was then placed on the operative eye. The patient was taken to the postoperative area in stable condition. [id number]/[facility] #: [id number] MTDD
== END 2018-11-10 14:55 | disposition home or self-care (01) ==
LOC: OREAST 11:53
PROVIDERS: ATTEND Student in an Organized Health Care Education/Training Program
DX: H25.11 Age-related nuclear cataract, right eye (principal); H33.011 Retinal detachment with single break, right eye; Z72.0 Tobacco use; E11.9 Type 2 diabetes mellitus without complications; Z79.84 Long term (current) use of oral hypoglycemic drugs; I10 Essential (primary) hypertension; C61 Malignant neoplasm of prostate; G47.33 Obstructive sleep apnea (adult) (pediatric); F41.8 Other specified anxiety disorders; Z79.01 Long term (current) use of anticoagulants; I25.10 Atherosclerotic heart disease of native coronary artery without angina pectoris; I25.2 Old myocardial infarction
CPT/HCPCS: A9270-GY; J2250; J3010; V2632

== ENCOUNTER 2018-11-17 09:47 | Day surgery (SDC) | payer MEDICARE ==
[~2018-11-17 09:47] MED LIST changes: -Acetaminophen TAB* 325 MG PO PRN; +Cyclopentolate 1% OPTH.SOL* 2 ML BTL ONE; +Ketorolac 0.5% OPHTH (NF) 0.5 % 5 ML BTL ONE; +Lidocaine 1% MPF ** 5 ML VIAL ONE; +Neomycin/Polymy/Dex OPHTH.OIN* 3.5 GM ONE; +Phenylephrine OPHTH SOL 2.5%* 2 ML ONE; +Povidone Iodine 5% OPTH* 30 ML BTL ONE; +Tetracaine 0.5% OPTH.SOL 4 ML* 1 DROP BTL ONE; +Tropicamide 1% OPTH.SOL* BTL ONE; +acetaZOLAMIDE TAB* 250 MG ONE
[2018-11-17] MEDS ORDERED: Lidocaine 2% PF * 5 ML VIAL ONE (11:15)
[2018-11-17] MEDS ORDERED: fentaNYL* 50 MCG/ML 2 ML VIAL (100 MCG VIAL) ONE (11:15)
[2018-11-17] MEDS ORDERED: Propofol* 10 MG/ML 20 ML BTL ONE (11:15)
[2018-11-17 12:05] VITALS: BP 107/86
--- NOTE | 2018-11-17 12:06 | OP ---
DATE OF OPERATION: 11/17/18 [facility] DATE OF : 57 SURGEON: Den Rivera MD ANESTHESIA: Monitored anesthesia care. PRE-OP DIAGNOSIS: Cataract, left eye. POST-OP DIAGNOSIS: Cataract, left eye. OPERATIVE PROCEDURE: Extracapsular cataract extraction of the left eye with intraocular lens implant. IMPLANT: SN60WF 18.5 diopter lens to the left eye. COMPLICATIONS: None. DESCRIPTION OF PROCEDURE: The patient was given phenylephrine 2.5 % and cyclopentolate 1% eye drops to the operative eye in the preoperative area. The patient was taken to the operating room where a time-out was taken to identify the correct patient, site, and side of surgery. The patient's left eye was prepped and draped in the usual sterile fashion with 5% Betadine. A second time- out was taken to verify the correct patient, side, and site of surgery, as well as the correct lens implant. A lid speculum was placed to the left eye. A 1mm paracentesis blade was used to make a clear corneal incision. Preservative-free 1% lidocaine was injected into the anterior chamber. DisCoVisc was then injected into the anterior chamber. A 2.75 mm keratome blade was used to make a triplanar incision. A cystotome initiated a capsulorrhexis, which was completed with Utrata forceps in a continuous and curvilinear manner. Hydrodissection of the lens was performed with BSS on a cannula. The lens could be spun in a capsular bag. The phacoemulsification handpiece was used with a divide-and- conquer technique to remove the nucleus. The I/A handpiece then removed the residual cortical lens material. DisCoVisc was injected to inflate the capsular bag. The planned SN60WF 18.5 diopter lens was injected into the capsular bag. The residual DisCoVisc was removed from the eye with the I/A handpiece. The corneal incisions were hydrated and no leaks occurred at physiologic pressure around 20 mmHg per palpation. The lid speculum was removed and drapes were removed. Maxitrol ointment was placed to the surface of the operative eye. An adhesive patch and shield was then placed on the operative eye. The patient was taken to the postoperative area in stable condition. [id number]/[facility] #: [id number] [facility]
== END 2018-11-17 11:58 | disposition home or self-care (01) ==
LOC: OREAST 09:47
PROVIDERS: ATTEND Student in an Organized Health Care Education/Training Program
DX: H25.12 Age-related nuclear cataract, left eye (principal); H33.011 Retinal detachment with single break, right eye; E11.9 Type 2 diabetes mellitus without complications; Z79.84 Long term (current) use of oral hypoglycemic drugs; I10 Essential (primary) hypertension; M19.90 Unspecified osteoarthritis, unspecified site; E78.00 Pure hypercholesterolemia, unspecified; C61 Malignant neoplasm of prostate
CPT/HCPCS: A9270-GY; J2704; J3010; V2632

== ENCOUNTER 2019-04-20 08:03 | Emergency (ER) | payer MEDICARE ==
[2019-04-20] MEDS ORDERED: methylPREDNISolone 125 MG* 2 ML VIAL IV ONE (08:51)
[2019-04-20] MEDS ORDERED: Albuterol/Ipratropium NEB.SOL* Albuterol 2.5 MG/Ipratropium 0.5 MG 3 ML INH ONE ×2 (08:51→10:43)
[2019-04-20] MEDS ORDERED: NS 0.9% 1000 ML** 1,000 ML IV ONE (08:51)
--- NOTE | 2019-04-20 09:05 | ED ---
Influenza-Like Illness - HPI Summary HPI Summary: The patient is a 63-year-old male presenting to [facility] emergency department with a chief complaint of flu-like symptoms for the last 3-4 days. He endorses a productive cough with yellow and white phlegm, rhinorrhea, body aches, sore throat, shortness of breath, chest congestion, wheezing, and diarrhea. He denies any fevers or chest pain. Currently, his symptoms are rated 4/10 in severity. There are no aggravating or alleviating factors, and he has not used any medications prior to arrival for treatment. No history of COPD. PMHx: borderline diabetes, hypertension, hyperlipidemia, 2 MIs, kidney stones, prostate cancer, cervical discectomy, knee surgery, shoulder surgery, eye surgery. Current every day smoker, rare EtOH, no substance use. Medications reviewed. Allergies noted. - History of Current Complaint Chief Complaint: EDFluSymptoms Time Seen by Provider: 04/20/19 08:39 Hx Obtained From: Patient Onset/Duration: Gradual Onset, Lasting Days - 3-4, Still Present Severity: Moderate Associated Signs & Symptoms: Myalgia, Cough - productive, Sore Throat, Diarrhea - Allergy/Home Medications Allergies/Adverse Reactions: Allergies Allergy/AdvReac Type Severity Reaction Status Date / Time isosorbide Allergy Headache Verified 04/20/19 08:07 DYE FROM STRESS TEST Allergy Nausea And Uncoded 04/20/19 08:07 Vomiting PMH/Surg Hx/FS Hx/Imm Hx Endocrine/Hematology History: Reports: Hx Diabetes - FINGER STICKS DAILY Cardiovascular History: Reports: Hx Hypercholesterolemia, Hx Hypertension Denies: Hx Congestive Heart Failure, Hx Pacemaker/ICD Respiratory History: Reports: Hx Sleep Apnea - RECENTLY DIAGNOSED-NO CPAP Denies: Hx Chronic Obstructive Pulmonary Disease (COPD) GI History: Reports: Hx Gastroesophageal Reflux Disease - MILD-NO MEDS Denies: Other GI Disorders History: Reports: Hx Kidney Stones - IN THE PAST Denies: Hx Dialysis, Hx Renal Disease Musculoskeletal History: Reports: Hx Arthritis - GENERALIZED, Other Musculoskeletal History - S/P NECK SURGERY-SPINAL STENOSIS Sensory History: Reports: Hx Cataracts, Hx Contacts or Glasses - FOR DRIVING Denies: Hx Hearing Aid Opthamlomology History: Reports: Hx Cataracts, Hx Contacts or Glasses - FOR DRIVING Neurological History: Reports: Hx Migraine Psychiatric History: Reports: Hx Anxiety - ON MED, Hx Depression - ON MED Denies: Hx Panic Disorder - Cancer History Cancer Type, Location and Year: PROSTATE - Surgical History Surgery Procedure, Year, and Place: Rt SHOULDER- 13 YRS AGO; 3- CARDIAC STENTS ( DONE IN [facility] 3.5/12 Xs 3) {ALL ARE SAFE FOR A 3T}-2004;CERVICAL SPINE, RT KNEE ARTHROSCOPIC,LT CARPAL TUNNEL SURGERY. RIGHT EYE [facility] [place] Hx Anesthesia Reactions: No Infectious Disease History: No Infectious Disease History: Denies: Traveled Outside the [place] in Last 30 Days - Family History Known Family History: Positive: Cardiac Disease, Hypertension, Diabetes - Social History Alcohol Use: Rare Alcohol Amount: 1/month Substance Use Type: Reports: None Substance Use Comment - Amount & Last Used: 3 cups coffee per morning Hx Tobacco Use: Yes Smoking Status (MU): Current Every Day Smoker Type: Cigarettes Amount Used/How Often: 10-15 CIGS Length of Time of Smoking/Using Tobacco: 48 YEARS Have You Smoked in the Last Year: Yes Review of Systems Negative: Fever Positive: Sore Throat, Nasal Discharge Negative: Chest Pain Positive: Shortness Of Breath, Cough - productive, green and white phlegm, Other - chest congestion, wheezing Positive: Diarrhea Positive: Myalgia - generalized body aches All Other Systems Reviewed And Are Negative: Yes Physical Exam - Summary Physical Exam Summary: VITAL SIGNS: Reviewed. GENERAL: Patient is a well-developed and nourished male who is lying comfortable in the stretcher. Patient is not in any acute respiratory distress. HEAD AND FACE: No signs of trauma. No ecchymosis, hematomas or skull depressions. No sinus tenderness. EYES: PERRLA, EOMI x 2, No injected conjunctiva, no nystagmus. EARS: Hearing grossly intact. Ear canals and tympanic membranes are within normal limits. MOUTH: Oropharynx within normal limits. NECK: Supple, trachea is midline, no adenopathy, no JVD, no carotid bruit, no c- spine tenderness, neck with full ROM. CHEST: Symmetric, no tenderness at palpation. LUNGS: Wheezing. Diffuse crackles. CVS: Regular rate and rhythm, S1 and S2 present, no murmurs or gallops appreciated. ABDOMEN: Soft, non-tender. No signs of distention. No rebound, no guarding, and no masses palpated. Bowel sounds are normal. EXTREMITIES: FROM in all major joints, no edema, no cyanosis or clubbing. NEURO: Alert and oriented x 3. No acute neurological deficits. Speech is normal and follows commands. SKIN: Dry and warm. Triage Information Reviewed: Yes Vital Signs On Initial Exam: Initial Vitals Temp Pulse Resp BP Pulse Ox 97.5 F 78 20 143/86 95 04/20/19 08:05 04/20/19 08:05 04/20/19 08:05 04/20/19 08:05 04/20/19 08:05 Vital Signs Reviewed: Yes Procedures - Sedation Patient Received Moderate/Deep Sedation with Procedure: No Diagnostics - Vital Signs Vital Signs Temp Pulse Resp BP Pulse Ox 04/20/19 08:05 97.5 F 78 20 143/86 95 - Laboratory Result Diagrams: 04/20/19 09:11 04/20/19 09:11 Lab Statement: Any lab studies that have been ordered have been reviewed, and results considered in the medical decision making process. - Radiology Chest X-Ray Radiology Interpretation Completed By: Radiologist Summary of Radiographic Findings: Impression: No active cardiopulmonary disease is noted. ED physician has reviewed this report. - EKG 0907 Cardiac Rate: NL - 75 BPM EKG Rhythm: Sinus Rhythm Summary of EKG Findings: An EKG at 0907 reveals normal sinus rhythm at 75 BPM. PVCs. T-wave inversions in V5 and V6. No ST elevations. ED physician has reviewed and interpreted this EKG. Re-Evaluation - Re-Evaluation First Eval Re-Evaluation Time: 10:38 Change: Unchanged Comment: The patient is still wheezing a lot. We will order another breathing treatment. Second Eval Re-Evaluation Time: 11:38 Change: Improved Comment: He is feeling better and would like to go home. We discussed all results. Flu Symptom Course/Dx - Course Assessment/Plan: The patient is a 63-year-old male presenting to [facility] emergency department with a chief complaint of flu-like symptoms for the last 3-4 days. He endorses a productive cough with yellow and white phlegm, rhinorrhea, body aches, sore throat, shortness of breath, chest congestion, wheezing, and diarrhea. He denies any fevers or chest pain. Currently, his symptoms are rated 4/10 in severity. There are no aggravating or alleviating factors, and he has not used any medications prior to arrival for treatment. No history of COPD. PMHx: borderline diabetes, hypertension, hyperlipidemia, 2 MIs, kidney stones, prostate cancer, cervical discectomy, knee surgery, shoulder surgery, eye surgery. Current everyday smoker, rare EtOH, no substance use. Medications reviewed. Allergies noted. Blood work without a significant abnormality except for glucose of 174. Influenza A and B are negative. Chest x-ray is negative for acute pathology. In the ED course, the patient was given DuoNeb and Albuterol, and the symptoms have significantly improved, however, he is still wheezing. He was given additional Duoneb, and I added Rocephin for possible bronchitis vs early pneumonia and possible COPD. After medication, he reports he is feeling much better and wants to be discharged home with f/u of PCP. I discussed all the findings and test results with the patient. Patient was instructed to return to the emergency room immediately if any of the symptoms return or worsen. Plan of care was discussed with the patient and understands and agrees. All questions were answered at patient satisfaction. There were no further complaints or concerns. Lung exam before discharge: CTA B/L. Good air exchange. Slight wheezing and mild crackles heard. CVS: S1 and S2 present. No murmurs appreciated. Patient is alert and oriented x 3. Patient is hemodynamically stable. 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 - Diagnoses Provider Diagnoses: COPD (chronic obstructive pulmonary disease) Discharge ED - Sign-Out/Discharge Documenting (check all that apply): Patient Departure - Patient will be discharged home. - Discharge Plan Condition: Stable Disposition: HOME Prescriptions: Azithromycin TAB* [Zithromax TAB (Z-MARILY) 250 mg #6 tabs] 2 tab PO .TODAY, THEN 1 DAILY #1 marily predniSONE TAB* [Deltasone 20 MG TAB*] 40 mg PO DAILY #8 tab Patient Education Materials: COPD (Chronic Obstructive Pulmonary Disease) (DC) Referrals: Adam Chavez MD [Primary Care Provider] - 3 Days Additional Instructions: Please take medications as prescribed. Follow up with your primary care provider in 2-3 days. Return to the emergency department for any new or worsening symptoms. - Billing Disposition and Condition Condition: STABLE Disposition: Home - Attestation Statements Document Initiated by Scribe: Yes Documenting Scribe: Sylvia Najera Provider For Whom Scribe is Documenting (Include Credential): Dr. Kimo Mills MD Scribe Attestation: I, Sylvia Najera, scribed for Dr. Kimo Mills MD on 04/20/19 at 1845. Scribe Documentation Reviewed: Yes Provider Attestation: The documentation as recorded by the scribe, Sylvia Najera accurately reflects the service I personally performed and the decisions made by me, Dr. Kimo Mills MD Status of Scribe Document: Viewed
[2019-04-20 09:24] LABS: ABS Basophils 0.1 10^3/ul (0-0.2); ABS Eosinophils 0.1 10^3/ul (0-0.6); ABS Monocytes 0.8 10^3/ul (0-0.8); ABS Neutrophils 7.4 10^3/ul (1.5-7.7); Eosinophil % 1.4 %; Hematocrit 47 % (42-52); Hemoglobin 15.6 g/dL (14.0-18.0); Lymphocyte % 18.8 %; Mean Corpuscular HGB Conc 33 g/dL (31-36); Mean Corpuscular Hemoglobin 29 pg (27-31); Mean Corpuscular Volume 88 fL (80-94); Mean Platelet Volume 9.8 fL (7.4-10.4); Platelet Count 174 10^3/uL (150-450); Red Blood Count 5.32 10^6 /uL (4.18-5.48); Red Cell Distribution Width 15 % (10-15); White Blood Count 10.4 10^3/uL (3.5-10.8)
[2019-04-20 09:30] LABS: Influenza A Molecular NEGATIVE (Negative); Influenza B Molecular NEGATIVE (Negative)
[2019-04-20 09:51] LABS: Albumin 4.4 g/dL (3.2-5.2); Albumin/Globulin Ratio 1.8 (1-3); BUN/Creatinine Ratio 20.5 (8-20); C Reactive Protein 1.11 mg/L (<8.01); Calcium 8.9 mg/dL (8.6-10.3); EGFR African American 131.7 (>60); EGFR Non-African American 108.9 (>60); Globulin 2.5 g/dL (2-4); Potassium 3.8 mmol/L (3.5-5.0); Total Bilirubin 0.5 mg/dL (0.2-1.0); Total Protein 6.9 g/dL (6.4-8.9); Troponin I 0.01 ng/mL (<0.03)
[2019-04-20 10:33] LABS: Urine Appearance Cloudy; Urine Bilirubin Negative (Negative); Urine Blood Negative (Negative); Urine Color Amber; Urine Glucose 1+(50 mg/dL) (Negative); Urine Ketones Trace (Negative); Urine Nitrite Negative (Negative); Urine Protein Negative (Negative); Urine Specific Gravity 1.032 (1.010-1.030); Urine Urobilinogen Negative (Negative)
[2019-04-20] MEDS ORDERED: cefTRIAXone(*) 1 GM in NS 0.9% 50 ML* 50 ML IVPB ONE (10:43)
[2019-04-20] MEDS ORDERED: Albuterol HFA INHALER* 8 gm MDI INH ONE (11:39)
[2019-04-20 11:47] VITALS: BP 141/79
== END 2019-04-20 11:55 | disposition home or self-care (01) ==
LOC: ED 08:03
DX: J44.9 Chronic obstructive pulmonary disease, unspecified (principal); E11.9 Type 2 diabetes mellitus without complications; E78.00 Pure hypercholesterolemia, unspecified; I10 Essential (primary) hypertension; K21.9 Gastro-esophageal reflux disease without esophagitis; F41.9 Anxiety disorder, unspecified; F32.9 Major depressive disorder, single episode, unspecified; F17.210 Nicotine dependence, cigarettes, uncomplicated; Z87.442 Personal history of urinary calculi; Z91.041 Radiographic dye allergy status; Z85.46 Personal history of malignant neoplasm of prostate
CPT/HCPCS: 36415; 71045; 80053; 81003; 83605; 83880; 84484; 85025; 86140; 87040; 93005; 96361; 96365; 96375; 99283; A9270-GY; J0696; J2930

== ENCOUNTER 2021-02-25 14:30 | Observation (INO) ==
[2021-02-25 16:01] LABS: ABS Eosinophils 0.1 10^3/ul (0-0.6); ABS Lymphocytes 1.3 10^3/ul (1.0-4.8); ABS Monocytes 0.7 10^3/ul (0-0.8); ABS Neutrophils 6.3 10^3/ul (1.5-7.7); Eosinophil % 1.5 %; Hematocrit 45 % (42-52); Hemoglobin 15.4 g/dL (14.0-18.0); Lymphocyte % 14.9 %; Mean Corpuscular HGB Conc 34 g/dL (31-36); Mean Corpuscular Hemoglobin 30 pg (27-31); Mean Corpuscular Volume 89 fL (80-94); Mean Platelet Volume 9.4 fL (7.4-10.4); Platelet Count 178 10^3/uL (150-450); Red Blood Count 5.11 10^6 /uL (4.18-5.48); Red Cell Distribution Width 14 % (10-15); White Blood Count 8.4 10^3/uL (3.5-10.8)
[2021-02-25 16:25] LABS: Albumin 4.2 g/dL (3.2-5.2); Albumin/Globulin Ratio 1.8 (1-3); Calcium 9.1 mg/dL (8.6-10.3); Globulin 2.4 g/dL (2-4); Potassium 4.2 mmol/L (3.5-5.0); Total Bilirubin 0.4 mg/dL (0.2-1.0); Total Protein 6.6 g/dL (6.4-8.9)
[2021-02-25 16:27] LABS: Troponin I 0.01 ng/mL (<0.03)
[2021-02-25] MEDS ORDERED: methylPREDNISolone 125 mg 2 ML VIAL IV ONE (18:37)
[2021-02-25] MEDS ORDERED: Magnesium Sulfate 2 gm BAG 2 GM/50 ML BAG IVPB ONE (18:37)
[2021-02-25] MEDS ORDERED: Albuterol/Ipratropium NEB.SOL (2.5/0.5 MG) 3 ML NEB.SOLN INH ONE (18:37)
[2021-02-25] MEDS ORDERED: Albuterol HFA INHALER 8 gm MDI INH ONE (18:48)
[2021-02-25 19:38] LABS: Rapid COVID-19 Molecular Undetected (Undetected)
[2021-02-25] MEDS ORDERED: SPIRIVA Respimat (tiotropium) 2.5 mcg/inh Inhaler INH ONE (20:37)
[2021-02-25 23:04] LABS: C Reactive Protein 1.29 mg/L (<8.01)
[2021-02-25] MEDS ORDERED: Ondansetron 4 mg VIAL 2 MG/ML 2 ml VIAL IV PRN (23:06)
[2021-02-25] MEDS ORDERED: Enoxaparin 40 MG/0.4 ML SYR SUBCUT SCH (23:45)
[2021-02-26] MEDS: Lidocaine PATCH 5% PATCH TRANSDERM SCH ×2 (00:28→09:46)
[2021-02-26] MEDS ORDERED: Albuterol HFA INHALER 8 gm MDI INH PRN (01:05)
[2021-02-26 01:11] LABS: Rapid COVID-19 Molecular Undetected (Undetected)
[2021-02-26 06:23] LABS: ABS Lymphocytes 0.6 10^3/ul (1.0-4.8); ABS Monocytes 0.1 10^3/ul (0-0.8); Hematocrit 45 % (42-52); Hemoglobin 15.1 g/dL (14.0-18.0); Lymphocyte % 7.4 %; Mean Corpuscular HGB Conc 34 g/dL (31-36); Mean Corpuscular Hemoglobin 30 pg (27-31); Mean Corpuscular Volume 89 fL (80-94); Mean Platelet Volume 9.4 fL (7.4-10.4); Nucleated Red Blood Cells % 0.1; Platelet Count 163 10^3/uL (150-450); Red Cell Distribution Width 14 % (10-15); White Blood Count 8.8 10^3/uL (3.5-10.8)
[2021-02-26 06:37] LABS: Albumin 3.9 g/dL (3.2-5.2); Albumin/Globulin Ratio 1.6 (1-3); Calcium 8.9 mg/dL (8.6-10.3); Direct Bilirubin 0.1 mg/dL (0.03-0.18); Globulin 2.4 g/dL (2-4); Indirect Bilirubin 0.3 mg/dL (0.3-1.0); Potassium 4.7 mmol/L (3.5-5.0); Total Bilirubin 0.4 mg/dL (0.2-1.0); Total Protein 6.3 g/dL (6.4-8.9)
[2021-02-26] MEDS ORDERED: Furosemide 20 mg/2 ml IV VIAL IV SLOW PU ONE (08:00)
[2021-02-26 08:24] LABS: C Reactive Protein 1.51 mg/L (<8.01)
[2021-02-26] MEDS ORDERED: Lidocaine Patch REMOVE PATCH PATCH OFF SCH (08:45)
[2021-02-26] MEDS ORDERED: Aspirin EC 81 mg TAB.EC (enteric coated) PO SCH (09:00)
[2021-02-26] MEDS ORDERED: Tiotropium Brom/Olodaterol MDI INH SCH (09:00)
[2021-02-26] MEDS ORDERED: Vitamin THERAPEUTIC TAB PO SCH (09:00)
[2021-02-26 13:03] VITALS: BP 134/70
[2021-02-26] MEDS ORDERED: Flu vaccine *QUAD* 2021-22* 0.5 ML SYRINGE IM ONE (13:57)
== END 2021-02-26 18:00 | disposition home or self-care (01) ==
LOC: ED 14:30 → MED 14:30 → SUATTDRO 23:06 → MED 02-26 03:02
PROVIDERS: ADMIT Internal Medicine; ATTEND Hospitalist